=== PATIENT | female | born 1980 | race African-American/Black ===

== ENCOUNTER 2024-05-19 22:08 | Observation (INO) | payer MEDICARE, MEDICAID, SELFPAY ==
[2024-05-19 22:11] VITALS: BP 170/100; PULSE 74; TEMP 36.8; O2SAT 97; BMI 51.6
--- NOTE | 2024-05-19 22:15 | ED_ITS ---
HPI - Abdominal Pain General Chief Complaint: Abdominal Pain Stated Complaint: Abdominal Pain Time Seen by Provider: 05/19/24 22:11 History of Present Illness HPI narrative: past history of gastric sleeve and appendectomy. States she has been vomiting recurrently since yesterday. No diarrhea. ? low grade temp. Denies hematemesis. Was seen at [facility] yesterday Related Data Home Medications ?Medication ?Instructions ?Recorded ?Confirmed duloxetine 60 mg capsule,delayed 60 mg PO DAILY 05/19/24 05/19/24 release lisinopril 20 1 tab PO DAILY 05/19/24 05/19/24 mg-hydrochlorothiazide 12.5 mg tablet vitamin with calcium 1 tab PO DAILY 05/19/24 05/19/24 no.72-iron 27 mg-folic acid 1 mg tablet ( Vitamins Plus Low Iron) semaglutide 0.25 mg or 0.5 mg (2 0.5 mg subcut .weekly 05/19/24 05/19/24 mg/3 mL) subcutaneous pen injector (Ozempic) Allergies Allergy/AdvReac Type Severity Reaction Status Date / Time No Known Drug Allergies Allergy Verified 05/19/24 22:16 Review of Systems ROS Status of ROS 10 or more systems reviewed and unremark able except as noted in history and below Exam Constitutional Vital Signs, click to edit/add: Last Vital Signs Temp 98.2 F 05/19/24 22:11 Pulse 65 05/20/24 00:23 Resp 16 05/20/24 00:23 BP 165/100 H 05/20/24 01:24 Pulse Ox 100 05/20/24 00:23 O2 Del Method Room Air 05/19/24 22:11 Common normals: oriented x3, alert and well nourished General appearance: in distress [facility] Common normals: normocephalic and head/scalp atraumatic Respiratory Common normals: normal respiratory effort, no retractions, no use of accessory muscles and clear to auscultation bilaterally Cardio Common normals: S1 normal heart sound and S2 normal heart sound Rate: tachycardic GI Palpation: tender Extremity Common normals: normal to inspection and full ROM Neuro Common normals: oriented x3, moves all extremities and no focal motor deficits Psych Appearance: grossly normal Course Vital Signs Vital signs: Vital Signs Temperature 98.2 F 05/19/24 22:11 Pulse Rate 74 05/19/24 22:11 Blood Pressure 170/100 H 05/19/24 22:11 Pulse Oximetry 97 05/19/24 22:11 Oxygen Delivery Method Room Air 05/19/24 22:11 Temperature 98.2 F 05/19/24 22:11 Pulse Rate 65 05/20/24 00:23 Respiratory Rate 16 05/20/24 00:23 Blood Pressure 165/100 H 05/20/24 01:24 Pulse Oximetry 100 05/20/24 00:23 Oxygen Delivery Method Room Air 05/19/24 22:11 MDM - Abdominal Pain MDM Narrative Medical decision making narrative: patient seen yesterday at [facility] for abdominal pain. CT with findings of mild esophageal wall thickening. Presents here with recurrent vomiting and p ain. Pain tolerable after receiving Fentanyl IV but she remained nauseated with dry heaving. protonix IV and zofran initially ordered followed by Veena and Monica due to recurrent dry heaves. WBC 13.6. BMP WNL and initial lactate elevated at 2.8. patient hydrated and lactate improved but nausea returned. xray of the abdomen unremarkable. Phenergan ordered and hospitalist paged for obs admission due to continued nausea and dry heaves Lab Data Labs: Lab Results 05/19/24 05/19/24 05/20/24 Range/Units 22:40 23:04 00:56 WBC 13.6 H (4.0-11.0) 10^3/uL RBC 5.74 H (4.20-5.40) 10^6/uL Hgb 12.9 (12.0-16.0) g/dL Hct 40.3 (36.0-48.0) % MCV 70.2 L (81.0-99.0) fL MCH 22.5 L (26.7-34.0) pg MCHC 32.0 (29.9-35.2) g/dL RDW 17.4 H (11.0-15.0) % Plt Count 240 (150-450) 10^3/uL MPV 10.4 (9.5-13.5) fL Neut % (Auto) 76.3 H (43.0-75.0) % Lymph % (Auto) 17.6 L (20.5-60.0) % [place] % (Auto) 5.5 (1.7-12.0) % Eos % (Auto) 0.0 L (0.9-7.0) % Baso % (Auto) 0.1 L (0.2-2.0) % Neut # (Auto) 10.4 H (1.4-6.5) 10^3/uL Lymph # (Auto) 2.4 (1.2-3.8) 10^3/uL [place] # (Auto) 0.7 (0.3-0.8) 10^3/uL Eos # (Auto) 0.0 (0.0-0.7) 10^3/uL Baso # (Auto) 0.0 (0.0-0.1) 10^3/uL Abs Immat Gran (auto) 0.07 H (0.00-0.03) 10^3/uL Imm/Tot Granulo (auto) 0.5 (0.0-0.5) % Sodium 134 L (136-145) mmol/L Potassium 3.9 (3.5-5.1) mmol/L Chloride 99 (98-107) mmol/L Carbon Dioxide 25.3 (21.0-32.0) mmol/L Anion Gap 13.6 BUN 6.0 L (7.0-18.0) mg/dL Creatinine 1.01 (0.55-1.02) mg/dL Est GFR ( Amer) >60 (>=60) Est GFR (Non-Af Amer) 59 L (>=60) BUN/Creatinine Ratio 5.9 Glucose 119 H (74-106) mg/dL Lactate 2.8 H* 1.0 (0.4-2.0) mmol/L Calcium 9.5 (8.5-10.1) mg/dL Total Bilirubin 0.5 (0.2-1.0) mg/dL AST 30 (15-37) U/L ALT 35 (14-59) U/L Alkaline Phosphatase 59 (46-116) U/L Troponin I High Sens 14.8 (4.0-51.3) pg/mL Total Protein 8.5 H (6.4-8.2) g/dL Albumin 4.1 (3.4-5.0) g/dL Globulin 4.4 g/dL Albumin/Globulin Ratio 0.9 Lipase 32.0 (16.0-77.0) U/L Imaging Data Abdominal x-ray: Radiologist's impression: ITS Impressions Abdomen X-Ray 05/19/24 23:34 IMPRESSION: 1. No acute cardiopulmonary process. 2. Nonobstructive bowel gas pattern. 3. No free air. Electronically authenticated by: IVONE WOLF Date: 05/20/2024 04:09 Discharge Plan Discharge Chief Complaint: Abdominal Pain Clinical Impression: Nausea & vomiting, Esophagitis Prescriptions / Home Meds: No Action lisinopril-hydrochlorothiazide 20-12.5 mg tablet 1 tab PO DAILY duloxetine 60 mg capsule,delayed release(DR/EC) 60 mg PO DAILY Vitamin Plus Low Iron 27 mg iron- 1 mg tablet 1 tab PO DAILY Ozempic 0.25 mg or 0.5 mg (2 mg/3 mL) pen injector 0.5 mg SUBCUT .weekly Print Language: Qatari Referrals: Physician,Non-Staff, [Physician] - 1 week
[2024-05-19] MEDS: 0.9 % SODIUM CHLORIDE 1,000 ML 999 ML IV (22:39)
[2024-05-19] MEDS: FENTANYL CITRATE/PF 100 MCG/2 ML VIAL 50 MCG IV (22:41)
[2024-05-19] MEDS: ONDANSETRON PF 4 MG/2 ML VIAL IV (22:41)
[2024-05-19] MEDS: FENTANYL CITRATE/PF 100 MCG/2 ML VIAL IV (23:00)
[2024-05-19 23:03] LABS: Anion Gap 13.6
[2024-05-19 23:05] LABS: Alanine Aminotransferase 35 U/L (14-59); Albumin Globulin Ratio 0.9; Albumin Level 4.1 g/dL (3.4-5.0); Alkaline Phosphatase 59 U/L (46-116); Aspartate Amino Transferase 30 U/L (15-37); BUN Creatinine Ratio 5.9; Bilirubin Total 0.5 mg/dL (0.2-1.0); Calcium 9.5 mg/dL (8.5-10.1); Carbon Dioxide 25.3 mmol/L (21.0-32.0); Chloride 99 mmol/L (98-107); Estimated GFR (African America >60 (>=60); Estimated GFR (Non-African Ame 59 (>=60); Globulin 4.4 g/dL; Glucose 119 mg/dL (74-106); Potassium 3.9 mmol/L (3.5-5.1); Sodium 134 mmol/L (136-145); Total Protein 8.5 g/dL (6.4-8.2); Troponin I High Sensitivity 14.8 pg/mL (4.0-51.3)
[2024-05-19 23:07] LABS: Lactate/Lactic Acid 2.8 mmol/L (0.4-2.0)
[2024-05-19 23:17] LABS: Basophils Percent Auto 0.1 % (0.2-2.0); Hematocrit 40.3 % (36.0-48.0); Hemoglobin 12.9 g/dL (12.0-16.0); Immature Granulocytes Abs Auto 0.07 10^3/uL (0.00-0.03); Immature Granulocytes Pct Auto 0.5 % (0.0-0.5); Lymphocytes Absolute Auto 2.4 10^3/uL (1.2-3.8); Lymphocytes Percent Auto 17.6 % (20.5-60.0); Mean Corpuscular Hemoglobin 22.5 pg (26.7-34.0); Mean Corpuscular Volume 70.2 fL (81.0-99.0); Mean Platelet Volume 10.4 fL (9.5-13.5); Monocytes Absolute Auto 0.7 10^3/uL (0.3-0.8); Monocytes Percent Auto 5.5 % (1.7-12.0); Neutrophils Absolute Auto 10.4 10^3/uL (1.4-6.5); Neutrophils Percent Auto 76.3 % (43.0-75.0); Platelet Count 240 10^3/uL (150-450); Red Blood Count 5.74 10^6/uL (4.20-5.40); Red Cell Distribution Width 17.4 % (11.0-15.0); White Blood Count 13.6 10^3/uL (4.0-11.0)
--- NOTE | 2024-05-19 23:34 | XR_ITS ---
The [address] [address] Patient Name: JACKIE OLIVARES MRN: [id number] date: 1980 Sex: F Assigned Patient Location: ER Current Patient Location: ER Accession/Order Number: [id number] Exam Date: 05/19/2024 23:47 Report Date: 05/20/2024 04:09 At the request of: PETER VALENCIA Procedure: XR abdomen min 2V EXAM: XR abdomen min 2V HISTORY: abdominal pain COMPARISON: None. FINDINGS: 2 images are submitted. The cardiomediastinal silhouette is normal. The lungs, pleural spaces, and pulmonary vascularity are normal. No acute osseous lesion is identified. The bowel gas pattern is unremarkable with gas extending to the level of the rectum. No mass or organomegaly is seen. There is no portal venous gas or bowel wall thickening. No suspicious abdominal calcifications are present. XR/XR abdomen min 2V IMPRESSION: 1. No acute cardiopulmonary process. 2. Nonobstructive bowel gas pattern. 3. No free air. Electronically authenticated by: IVONE WOLF Date: 05/20/2024 04:09
[2024-05-20] VITALS (15 sets, daily range): BP systolic 147–173; BP diastolic 79–100; PULSE 58–75; TEMP 36.6–36.7; O2SAT 96–100; BMI 51.1
--- NOTE | 2024-05-20 00:04 | ECG_ITS ---
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
[2024-05-20] MEDS: DICYCLOMINE HCL 20 MG/2 ML VIAL IM (00:13)
[2024-05-20] MEDS: METOCLOPRAMIDE HCL 10 MG/2 ML VIAL IVP (00:13)
[2024-05-20] MEDS: DIPHENHYDRAMINE HCL 50 MG/ML VIAL IV (01:06)
[2024-05-20] MEDS: PANTOPRAZOLE SODIUM 40 MG VIAL IV ×2 (01:06→12:30)
[2024-05-20] MEDS: PROMETHAZINE HCL 12.5 MG in 0.9 % SODIUM CHLORIDE 50 ML 202 MG IV (04:21)
[2024-05-20] MEDS: 0.9 % SODIUM CHLORIDE 1,000 ML 100 ML IV ×2 (06:15→14:37)
[2024-05-20] MEDS: ONDANSETRON PF 4 MG/2 ML VIAL IV ×2 (06:17→12:30)
--- NOTE | 2024-05-20 08:31 | P.HP_ITS ---
HPI H&P: HPI History of Present Illness Chief complaint: recurrent n+v Narrative: Patient is a 43 year old Black female with past medical history of obesity, had a gastric sleeve 2020, has also been taking ozempic since 2018, recent dose increase to 0.5mg up from 0.25mg in March, HTN, depression. She reports that she has been having alot of GERD symptoms lately and has discussed this with her GI doctor at [facility]. She is scheduled for upper scope on 05/22/24. She presented to [place] [facility] and then to [place] [facility] last night with nausea, vomiting and abdominal pain for 2-3 days. She describes the pain as epigastric and radiates into the right upper quadrant. No fevers or chills, no chest pain. She did not take anything at home prior to arrival. ER findings: CT with findings of mild esophageal wall thickening ([place] [facility]), Patient received Fentanyl IV, protonix IV and zofran initially ordered followed by Veena and Monica due to recurrent dry heaves. No improvement so admitted to the hospitalist for further plan of care. This morning on exam. Pain has improved with IV morphine, no vomiting but still nauseated. Opioid HPI Opioid Management Most Recent Pain and Opioid Data: Last Pain Scale 10 05/20/24 09:18 Last Pain Assessment 05/20/24 10:56 Last MAR Pain Assessment 05/20/24 09:18 Last ORT Total Score 4 05/20/24 05:55 Last ORT Risk Category Moderate Risk 05/20/24 05:55 Review of Systems ROS Narrative ROS: a complete review of systems were reviewed with patient and are positive as below or listed in History of Chief Complaint. General: no fever, chills, night sweats Head: no headache, trauma, visual changes, nausea or vomiting Skin: no reported rashes, itching or sores Eyes: no blurriness of vision Ears: no reported hearing loss, vertigo, earache, or tinnitus Throat: no sore throat, hoarseness, swelling of neck, or tongue pain Heart: no chest pain Lungs: no shortness of breath or cough GI: no diarrhea but vomiting/nausea Urinary: no urinary urgency, frequency or pain Neuro: no numbness or tingling HEM: no bleeding issues or bruising ENDO: no thyroid problems Psych: no anxiety or depression PFSH PFSH Medical History (Updated 05/20/24 @ 11:33 by Yvette Finnegan DO) Hypertension ?I10 - Essential (primary) hypertension (ICD-10) Numbness in right leg ?R20.0 - Anesthesia of skin (ICD-10) Osteoarthritis ?M19.90 - Unspecified osteoarthritis, unspecified site (ICD-10) Fibromyalgia ?M79.7 - Fibromyalgia (ICD-10) Diabetes ?E11.9 - Type 2 diabetes mellitus without complications (ICD-10) PTSD (post-traumatic stress disorder) ?F43.10 - Post-traumatic stress disorder, unspecified (ICD-10) Depression ?F32.A - Depression, unspecified (ICD-10) Surgical History History of gastric surgery ?Z98.890 - Other specified postprocedural states (ICD-10) H/O laminectomy ?Z98.890 - Other specified postprocedural states (ICD-10) Hx of appendectomy ?Z90.49 - Acquired absence of other specified parts of digestive tract (ICD- 10) Family History Mother Family history of cancer Brother Family history of diabetes mellitus Sister Family history of diabetes mellitus Father Family history of stroke Family history of CHF (congestive heart failure) Social History Within the past year, how often did you have a drink containing alcohol: monthly or less Within the past year, how many standard drinks containing alcohol did you have on a typical day: 1 or 2 Within the past year, how often did you have six or more drinks on one occasion: never Total score: 0 Score interpretation: A score less than 3 is consistent with normal alcohol consumption. Smoking status: Former smoker Non-prescribed substance use: cannabis (any form) Highest level of school completed/degree received: Master's degree Are you now , , , , never or living with a partner: living with partner In a typical week, how many times do you talk on the telephone with family, friends, or neighbors: 3 or more times per week How often do you get together with friends or relatives: 3 or more times per week How often do you attend episcopal or rastafarian services: 4 or more times per year Little interest or pleasure in doing things: several days Feeling down, depressed, or hopeless: several days Life stressors: recent of family or friend Life stressor details: of friend and aunt Do you think of yourself as: straight/heterosexual Gender Identity: female Meds Home Medications and Allergies Home Medications ?Medication ?Instructions ?Recorded ?Confirmed ?Type duloxetine 60 mg capsule,delayed 60 mg PO DAILY 05/19/24 05/19/24 History release lisinopril 20 1 tab PO DAILY 05/19/24 05/19/24 History mg-hydrochlorothiazide 12.5 mg tablet vitamin with calcium 1 tab PO DAILY 05/19/24 05/19/24 History no.72-iron 27 mg-folic acid 1 mg tablet ( Vitamins Plus Low Iron) semaglutide 0.25 mg or 0.5 mg (2 0.5 mg subcut .weekly 05/19/24 05/19/24 History mg/3 mL) subcutaneous pen injector (Ozempic) Allergies Allergy/AdvReac Type Severity Reaction Status Date / Time No Known Drug Allergies Allergy Verified 05/19/24 22:16 Exam Narrative Exam Narrative: General: Patient is alert, and oriented to person, place and time with normal affect, proper hygiene Skin: no visible rashes, or ulcers Head: atraumatic, acephalic Eyes: PERRLA, no nystagmus present, conjunctiva clear, no scleral icterus Ears: normal gross auditory acuity Heart: Normal rate and rhythm, no murmurs/rubs/gallops Lungs: no audible wheezes, crackles and normal breath sounds all lung [place] Abdomen: Normal audible bowel sounds, no distension, patient with guarding and rigidity with palpation of the epigastric and RUQ Musculoskeletal: no swelling bilateral lower extremities Neuro: CN II-X grossly intact Constitutional Vital Signs, click to edit/add: Last Vital Signs Temp 98.1 F 05/20/24 05:47 Pulse 70 05/20/24 07:17 Resp 18 05/20/24 05:47 BP 147/84 H 05/20/24 05:47 Pulse Ox 96 05/20/24 05:47 O2 Del Method Room Air 05/20/24 05:47 Results Labs Labs: Short CBC 05/19/24 Range/Units 23:04 WBC 13.6 H (4.0-11.0) 10^3/uL Hgb 12.9 (12.0-16.0) g/dL Hct 40.3 (36.0-48.0) % Plt Count 240 (150-450) 10^3/uL BMP 05/19/24 22:40 Sodium 134 L Potassium 3.9 Chloride 99 Carbon Dioxide 25.3 BUN 6.0 L Creatinine 1.01 Glucose 119 H Calcium 9.5 Liver Function 05/19/24 Range/Units 22:40 Total Bilirubin 0.5 (0.2-1.0) mg/dL AST 30 (15-37) U/L ALT 35 (14-59) U/L Alkaline Phosphatase 59 (46-116) U/L Albumin 4.1 (3.4-5.0) g/dL Assessment and Plan Assessment and Plan (1) Esophagitis: Assessment and Plan: will place on protonix and pepcid, will also add Carafate once starts eating. She has EGD scheduled to [facility] on Wednesday, hope to get symptoms controlled and DC her home so she can keep this appointment. Can be from Gastroparesis component (from ozempic?) vs GERD. EGD will help with diagnosis (2) Nausea & vomiting: Assessment and Plan: continue zofran as needed. Qualifiers: Vomiting type: unspecified Qualified Code(s): R11.2 - Nausea with vomiting, unspecified (3) Abdominal pain: Assessment and Plan: history of appendectomy, will Check RUQ ultrasound and make sure Gallbladder looks ok, normal LFT's and lipase and bilirubin Qualifiers: Abdominal location: epigastric Qualified Code(s): R10.13 - Epigastric pain (4) Hypertension: Assessment and Plan: continue home lisinpril, hctz Qualifiers: Hypertension type: primary hypertension Qualified Code(s): I10 - Essential (primary) hypertension (5) Fibromyalgia: Assessment and Plan: continue duloxetine. (6) Depression: Assessment and Plan: continue duloxetine Qualifiers: Depression Type: unspecified Qualified Code(s): F32.A - Depression, unspecified Plan Patient is full code patient placed in observation, pain and antiemetics, Ultrasound today, IVF, hopeful discharge home tomorrow.
--- NOTE | 2024-05-20 09:12 | US_ITS ---
[address] [address] Patient Name: JACKIE OLIVARES MRN: [id number] date: 1980 Sex: F Assigned Patient Location: [place] Current Patient Location: [place] Accession/Order Number: [id number] Exam Date: 05/20/2024 10:38 Report Date: 05/20/2024 12:30 At the request of: TEMI NOEL Procedure: US right upper quadrant EXAM: US right upper quadrant INDICATION: RUQ pain. COMPARISON: None. TECHNIQUE: Grayscale and color Doppler sonographic images of the right upper quadrant. FINDINGS: Pancreas: Normal where seen. Liver: Normal echogenicity and echotexture. Normal surface contour. No focal lesion. Patent main portal vein with antegrade flow. Gallbladder: No gallstones. No gallbladder wall thickening or pericholecystic fluid. Negative sonographic Charles sign. Intrahepatic Ducts: Normal. Common Bile Duct: Normal caliber measuring 6 mm in diameter. Right Kidney: Normal corticomedullary differentiation. No suspicious lesion or stone. No hydronephrosis. Right Kidney length: 9.9 cm Ascites: None. US/US right upper quadrant IMPRESSION: No evidence of acute right upper quadrant abnormality. Electronically authenticated by: TED SERRANO Date: 05/20/2024 12:30
[2024-05-20] MEDS: MORPHINE SULFATE 2 MG/ML SYRINGE IV ×4 (09:18→22:20)
[2024-05-20 15:38] LABS: Bilirubin Urine NEGATIVE (NEGATIVE); Blood Urine NEGATIVE (NEGATIVE); Clarity Urine CLEAR (CLEAR); Color Urine LT. YELLOW (YELLOW); Glucose Urine UA NEGATIVE (NEGATIVE); Ketones Urine >=80 mg/dL (NEGATIVE); Leukocyte Esterase Urine NEGATIVE (NEGATIVE); Nitrite Urine NEGATIVE (NEGATIVE); Protein Urine NEGATIVE (NEG/TRACE); Urine Microscopic Indicated NO; Urobilinogen Urine 0.2 EU/dL (0.2-1.0)
[2024-05-20] MEDS: PROMETHAZINE HCL 25 MG in 0.9 % SODIUM CHLORIDE 50 ML 204 MG IV ×2 (17:02→23:42)
[2024-05-20] MEDS: FAMOTIDINE 20 MG TABLET 40 MG PO (20:30)
[2024-05-21] MEDS: PANTOPRAZOLE SODIUM 40 MG VIAL IV (01:38)
[2024-05-21] MEDS: 0.9 % SODIUM CHLORIDE 1,000 ML 100 ML IV (01:39)
[2024-05-21] MEDS: ONDANSETRON PF 4 MG/2 ML VIAL IV (04:24)
[2024-05-21] MEDS: MORPHINE SULFATE 2 MG/ML SYRINGE IV ×2 (04:24→11:15)
[2024-05-21 05:15] VITALS: O2SAT 98
[2024-05-21 06:00] VITALS: BP 140/90; PULSE 71; TEMP 37; O2SAT 96; O2SAT 99
[2024-05-21 06:32] LABS: Basophils Percent Auto 0.2 % (0.2-2.0); Eosinophils Percent Auto 0.1 % (0.9-7.0); Hematocrit 40.8 % (36.0-48.0); Hemoglobin 12.8 g/dL (12.0-16.0); Immature Granulocytes Abs Auto 0.07 10^3/uL (0.00-0.03); Immature Granulocytes Pct Auto 0.7 % (0.0-0.5); Lymphocytes Absolute Auto 2.1 10^3/uL (1.2-3.8); Lymphocytes Percent Auto 20.3 % (20.5-60.0); Mean Corpuscular HGB Conc 31.4 g/dL (29.9-35.2); Mean Corpuscular Hemoglobin 22.4 pg (26.7-34.0); Mean Corpuscular Volume 71.5 fL (81.0-99.0); Mean Platelet Volume 10.6 fL (9.5-13.5); Monocytes Absolute Auto 0.7 10^3/uL (0.3-0.8); Monocytes Percent Auto 6.9 % (1.7-12.0); Neutrophils Absolute Auto 7.5 10^3/uL (1.4-6.5); Neutrophils Percent Auto 71.8 % (43.0-75.0); Platelet Count 203 10^3/uL (150-450); Red Blood Count 5.71 10^6/uL (4.20-5.40); White Blood Count 10.4 10^3/uL (4.0-11.0)
[2024-05-21 06:51] LABS: Alanine Aminotransferase 28 U/L (14-59); Albumin Globulin Ratio 0.9; Albumin Level 3.5 g/dL (3.4-5.0); Alkaline Phosphatase 49 U/L (46-116); Anion Gap 12.8; BUN Creatinine Ratio 4.3; Bilirubin Total 0.6 mg/dL (0.2-1.0); Calcium 8.2 mg/dL (8.5-10.1); Carbon Dioxide 26.4 mmol/L (21.0-32.0); Chloride 101 mmol/L (98-107); Estimated GFR (African America >60 (>=60); Estimated GFR (Non-African Ame >60 (>=60); Globulin 4.1 g/dL; Glucose 102 mg/dL (74-106); Magnesium 2.1 mg/dL (1.8-2.4); Phosphorus 2.1 mg/dL (2.6-4.7); Potassium 3.2 mmol/L (3.5-5.1); Sodium 137 mmol/L (136-145); Total Protein 7.6 g/dL (6.4-8.2)
[2024-05-21 07:40] LABS: Aspartate Amino Transferase 19 U/L (15-37)
--- NOTE | 2024-05-21 07:40 | PM.DS1 ---
DS: Providers Provider Date of admission: 05/20/24 05:35 Primary care physician: BRISEIDA BUENROSTRO Admitting clinician: Yvette Finnegan Discharging clinician: Yvette Finnegan DS: Diagnosis Discharge Diagnosis (1) Esophagitis: (2) Nausea & vomiting: Qualifiers: Vomiting type: unspecified Qualified Code(s): R11.2 - Nausea with vomiting, unspecified (3) Abdominal pain: Qualifiers: Abdominal location: epigastric Qualified Code(s): R10.13 - Epigastric pain (4) Hypertension: Qualifiers: Hypertension type: primary hypertension Qualified Code(s): I10 - Essential (primary) hypertension (5) Fibromyalgia: (6) Depression: Qualifiers: Depression Type: unspecified Qualified Code(s): F32.A - Depression, unspecified DS: Summary Hospital Course Hospital Course: Patient is a 43 year old Black female with past medical history of obesity, had a gastric sleeve 2020, has also been taking ozempic since 2018, recent dose increase to 0.5mg up from 0.25mg in March, HTN, depression. She reports that she has been having alot of GERD symptoms lately and has discussed this with her GI doctor at [facility]. She is scheduled for upper scope on 05/22/24. She presented to [place] [facility] and then to [place] [facility] with nausea, vomiting and abdominal pain for 2-3 days. She describes the pain as epigastric and radiates into the right upper quadrant. No fevers or chills, no chest pain. She has been taking protonix. ER findings: CT with findings of mild esophageal wall thickening ([place] [facility]), Patient received Fentanyl IV, protonix IV and zofran initially ordered followed by [facility] due to recurrent dry heaves. No improvement so admitted to the hospitalist for further plan of care. RUQ ultrasound showed no acute findings, normal appearing gallbladder. She continued to improve with NPO status and held down ice chips. She also kept down gatorade with zofran and phenergan. Normal lab findings today. Patient reports pain is controlled. I will discharge her home today with zofran, phenergan suppositories (discussed may cause sedation), protonix and pepcid. I have also sent 2 days of [place] for her to take for severe pain. She has a EGD scheduled tomorrow at [facility] and feel it is most important for her to go/keep this appointment. She agrees with plan to discharge today with plan for EGD tomorrow. Status at Discharge Functional status at discharge: independent ambulation Overall status at discharge: patient is progressing back to baseline Time Spent with Patient Time attestation: Total time spent providing and/or coordinating discharge services: Time spent: greater than 30 minutes Exam Narrative Exam Narrative: General: Patient is alert, and oriented to person, place and time with normal affect, proper hygiene Skin: no visible rashes, or ulcers Head: atraumatic, acephalic Eyes: PERRLA, no nystagmus present, conjunctiva clear, no scleral icterus Ears: normal gross auditory acuity Heart: Normal rate and rhythm, no murmurs/rubs/gallops Lungs: no audible wheezes, crackles and normal breath sounds all lung [place] Abdomen: Normal audible bowel sounds, no distension, patient with guarding of the epigastric and RUQ region Musculoskeletal: no swelling bilateral lower extremities Neuro: CN II-X grossly intact Constitutional Vital Signs, click to edit/add: Last Vital Signs Temp 98.6 F 05/21/24 06:00 Pulse 71 05/21/24 06:00 Resp 20 05/21/24 06:00 BP 140/90 05/21/24 06:00 Pulse Ox 99 05/21/24 06:00 O2 Del Method Room Air 05/21/24 06:00 DS: Data Data Completed and Pending Labs on day of discharge: Labs from last 24 hours 05/21/24 05/20/24 05:56 14:48 WBC 10.4 RBC 5.71 H Hgb 12.8 Hct 40.8 MCV 71.5 L MCH 22.4 L MCHC 31.4 RDW 17.0 H Plt Count 203 MPV 10.6 Neut % (Auto) 71.8 Lymph % (Auto) 20.3 L [place] % (Auto) 6.9 Eos % (Auto) 0.1 L Baso % (Auto) 0.2 Neut # (Auto) 7.5 H Lymph # (Auto) 2.1 [place] # (Auto) 0.7 Eos # (Auto) 0.0 Baso # (Auto) 0.0 Abs Immat Gran (auto) 0.07 H Imm/Tot Granulo (auto) 0.7 H Urine Color Lt. yellow Urine Clarity Clear Urine pH 7.0 Ur Specific [place] 1.020 Urine Protein Negative Urine Glucose (UA) Negative Urine Ketones >=80 A Urine Occult Blood Negative Urine Nitrite Negative Urine Bilirubin Negative Urine Urobilinogen 0.2 Ur Leukocyte Esterase Negative Discharge Plan Discharge Disposition: Home, Self-Care Discharge Medications: New famotidine 20 mg Tablet 40 mg PO BID 7 Days Qty: 28 0RF ondansetron 4 mg Tablet,Disintegrating 4 mg sublingual Q4H PRN (Reason: Nausea And Vomiting) 7 Days Qty: 30 0RF promethazine 12.5 mg suppository 12.5 mg DE Q6H PRN (Reason: nausea and vomiting) Qty: 12 0RF hydrocodone-acetaminophen 5-325 mg tablet 1 tab PO Q8H PRN (Reason: pain) 2 Days Qty: 6 0RF Rx Instructions: ICD 10: R10.13 pantoprazole [Protonix] 40 mg tablet,delayed release (DR/EC) 40 mg PO Q12H 7 Days Qty: 14 0RF Continued lisinopril-hydrochlorothiazide 20-12.5 mg tablet 1 tab PO DAILY duloxetine 60 mg capsule,delayed release(DR/EC) 60 mg PO DAILY Vitamin Plus Low Iron 27 mg iron- 1 mg tablet 1 tab PO DAILY Ozempic 0.25 mg or 0.5 mg (2 mg/3 mL) pen injector 0.5 mg SUBCUT .weekly Activity: increase activity as tolerated Diet: other Diet Detail: clear liquid diet, advance as tolerated Print Language: Slovenian Patient Instructions: Abdominal Pain (DC), Esophagitis (DC) Forms: Portal Instructions Follow Up Appointments: Call Wednesday Briseida Buenrostro NP for follow up in one week ([phone])) Keep already scheduled appointment for EGD tomorrow
[2024-05-21] MEDS: PROMETHAZINE HCL 25 MG in 0.9 % SODIUM CHLORIDE 50 ML 204 MG IV (08:29)
--- NOTE | 2024-05-22 13:11 | CM.DCFOLLOWU ---
Spoke to pt's fiance and pt is in the Emergency Dept.
== END 2024-05-21 12:22 | disposition home or self-care (01) ==
LOC: ER 23:04 → MS 05-20 05:44
PROVIDERS: Registered Nurse; Admitting Provider Family Medicine; Emergency Provider Internal Medicine; PCP Nurse Practitioner Family; Visit Provider Family Medicine
DX: K20.90 Esophagitis, unspecified without bleeding (principal); R11.2 Nausea with vomiting, unspecified; R10.13 Epigastric pain; I10 Essential (primary) hypertension; M79.7 Fibromyalgia; F32.A Depression, unspecified; E66.9 Obesity, unspecified; Z98.84 Bariatric surgery status; Z90.49 Acquired absence of other specified parts of digestive tract; Z87.891 Personal history of nicotine dependence; Z79.899 Other long term (current) drug therapy; Z68.43 Body mass index [BMI] 50.0-59.9, adult
CPT/HCPCS: 36415; 74019; 76705; 80053; 81003; 83605; 83690; 83735; 84100; 84484; 85025; 93005; 94761; 96361; 96365; 96372; 96375; 96376; 99285; G0378; J0500; J1200; J2250; J2270; J2405; J2765; J3010